=== PATIENT | female | born 1980 | race Caucasian/White ===

== ENCOUNTER 2023-05-14 10:07 | Emergency (ER) | payer BC, SELFPAY ==
[2023-05-14 10:25] VITALS: BP 154/102
[2023-05-14 11:03] LABS: % Basophils 0.2 % (0-2); % Eosinophils 2.7 % (0-6); % Immature Granulocytes 0.2 % (0-0.5); % Monocytes 5.2 % (1.7-9.3); % Neutrophils 55.7 % (42.2-75.2); Absolute Eosinophils 0.2 10^3/uL (0-0.7); Absolute Lymphocytes 2.9 10^3/uL (1.2-3.4); Absolute Monocytes 0.4 10^3/uL (0.1-0.6); Absolute Neutrophils 4.5 10^3/uL (1.4-6.5); Hematocrit 38.1 % (37.0-47.0); Hemoglobin 12.9 g/dL (12.0-16.0); Mean Corp Hgb Conc. 33.9 g/dL (33.0-37.0); Mean Corpuscular Hgb 27.4 pg (27.0-31.0); Mean Corpuscular Volume 80.9 fL (81.0-99.0); Mean Platelet Volume 9.3 fL (7.4-10.4); Nucleated Red Blood Cells % 0 %; Platelet Count 359 10^3/uL (130-400); Red Blood Cell Count 4.71 10^6/uL (4.20-5.40); Red Cell Dist. Width 13.6 % (11.5-14.5); White Blood Cell Count 8.1 10^3/uL (4.8-10.8)
[2023-05-14 11:05] LABS: HCG, Serum Qualitative Screen Negative
[2023-05-14 11:12] LABS: ALT (SGPT) 19 U/L (0-35); AST (SGOT) 21 U/L (14-36); Albumin 3.9 g/dl (3.5-5.0); Alkaline Phosphatase 100 U/L (38-126); Blood Urea Nitrogen 16 mg/dl (7-17); Calcium 9.5 mg/dl (8.4-10.2); Carbon Dioxide 22 mmol/L (22-30); Chloride 104 mmol/L (98-107); Glucose 95 mg/dl (70-99); Potassium 4.2 mmol/L (3.5-5.1); Sodium 135 mmol/L (135-145); Total Bilirubin 0.8 mg/dl (0.2-1.3); Total Protein 7.3 g/dl (6.3-8.2); eGFR > 60.00
--- NOTE | 2023-05-14 12:08 | ED.GENMED ---
History of Present Illness
General
Chief Complaint: Headache
Source: patient
Exam Limitations: none
Time Seen by Provider: 05/14/23 12:07
Nursing documentation reviewed up to this point in time: agreed with
Travel History
Have you had any contact with someone who has COVID-19?: No
Do you have any symptoms of coronavirus? Fever > 100 degrees, chills, cough, shortness of breath, sore throat, loss of taste or smell, muscle aches, or headache?: No
History of Present Illness
History of Present Illness:
42-year-old female past medical history of chronic headaches, chronic neck pain psoriatic arthritis on Humira followed by pain management Dr. Rene Fuentes presents to the ER for evaluation. She has had a headache since she had the flu in February.
She reports for the past week however this headache is just not going away. She does take an occasional ibuprofen. She is photosensitive. She complains of generalized headache. She is nauseous and lightheaded at times. She denies any
associated fevers. Denies any trauma denies any chiropractic work. She has been eval by her family doctor for this headache. She has been seen by ENT last week as well as ophthalmology. She was told she had some congestion and inflammation from
ENT. She was recommended to get Botox for headaches but did not do so yet. Today she had a little swishing sound in her left ear which concerned her otherwise she reports this headache is the same as her normal headaches in general but just not
going away. Denies any vertigo.
Past History
Past History
ED Past Medical History: Other (Migraine headaches, fibromylagia, psoriatic arthritis)
ED Past Surgical History: and Other (Breast reduction, hernia repair)
Social History
Tobacco: Non-smoker
Alcohol: Occasional
Drug: None (no hx of aortic disease)
Personal:
Living: with family
Employment: Employed
Family History
Family History: CAD (grandfather in early 50's)
Review of Systems
Review of Systems
Allergies reviewed?: Yes
All Other Systems: ROS reviewed and negative except as documented in HPI and ROS
Constitutional: Reports no symptoms; Denies fever, fatigue or chills
EENT: Reports no symptoms
Respiratory: Reports no symptoms
Cardiac: Reports no symptoms
ABD/GI: Reports nausea
: Reports no symptoms
Musculoskeletal: Denies neck pain
Skin: Reports no symptoms; Denies rash
Neurological: Reports headache; Denies dizzy, weakness or numbness
Hematologic/Lymphatic: Reports no symptoms
Psychiatric: Reports no symptoms
Phy Exam
General Physical Exam
General Presentation: no apparent distress
General age: appears stated age
General Skin: warm and dry
General Habitus: normal
General Mental: alert
General Hydration: appears well hydrated
Eye Exam
Eye Exam: PERRL and EOMI
Eye Exam General: PERRL: bilateral and EOM intact: bilateral
Pupil Exam: Bilateral: round and reactive
Cardiovascular Exam
Cardiovascular Exam: regular rate/rhythm, no murmur and normal peripheral pulses
Pulmonary Exam
Pulmonary Exam: lungs clear and no respiratory distress
Neurological Exam
Neurological Exam: alert and oriented x3
Amy Coma Scale
Eye Opening: Spontaneous
Verbal Response: Oriented
Motor Response: Obeys Commands
GCS Total Score: 15
Cerebellar
Cerebellar Function: normal finger to nose
Musculoskeletal Exam
Musculoskeletal Exam: full ROM
Skin Exam
Skin Exam: normal color and warm/dry
Psychiatric Exam
Psychiatric Exam: normal mood/affect
Course
Orders/Labs/Results
Orders:
Orders
05/14/23 10:32
CT Head W/o Iv Contrast Urgent
Comment:
Reason For Exam: GHOSH
Test Result ONCE
05/14/23 10:44
CBC/With Diff [Complete Blood Count/With Diff] Urgent
CMP [Comprehensive Metabolic Panel] Urgent
HCG, Serum Qualitative Screen Urgent
05/14/23 12:50
Diphenhydramine [Benadryl] 25 mg IV NOW STA
Metoclopramide [Reglan] 10 mg IV NOW STA
05/14/23 12:51
0.9% Sodium Chloride 1000 ml [Nss] 1,000 ml IV BOLUS
Ketorolac [Toradol] 15 mg IV NOW STA
Abnormal Lab Results
05/14/23
10:44
MCV 80.9 L fL
(81.0-99.0)
05/14/23 10:44
05/14/23 10:44
Vital Signs
Initial and Last Documented VS:
Initial Vital Signs
Temp Pulse Resp BP Pulse Ox
98.3 F 90 16 154/102 98
05/14/23 10:25 05/14/23 10:25 05/14/23 10:25 05/14/23 10:25 05/14/23 10:25
Last Documented Vital Signs
Temp Pulse Resp BP Pulse Ox
98.3 F 78 16 128/97 98
05/14/23 10:25 05/14/23 13:54 05/14/23 13:54 05/14/23 13:54 05/14/23 13:54
MDM/Problems Addressed
Differential Diagnosis Includes:
Not included to headache migraine
MDM/Problems Addressed:
Patient with a history of chronic headaches reports this headache is just simply not going away but does feel similar to her other prior headaches. She presents awake alert no acute distress no recent fevers. She only takes ibuprofen as needed.
She does have pain management and neurology she is not on migraine medication she did not like how this made her feel in the past. She was recommended Botox but did not do this yet. She presents awake alert no acute distress no meningismus
afebrile not on toxic appearing. Patient had a negative CT head. She is afebrile no acute distress no meningismus. She was given Reglan Benadryl fluids Toradol feeling much better. Eating here in the ER.
Will DC with outpatient follow-up with her neurologist/pcp
Chronic conditions affecting care:
chronic headaches psoriatic arthritis on Humira
*Radiology
Radiology exam reviewed: radiology read reviewed
*Pulse Oximetry
Patient hypoxic: no
*Critical Care Note
Total Time (30-74mins, 75-104mins- exclusive of procedures): Not Applicable
ED Attending Note
-
Portions of this chart may have been created with voice recognition software.� Occasional wrong word or��sound alike� substitutions may have occurred due to the inherent limitations of voice recognition software.
Discharge Plan
Departure
Patient Disposition: Home (Routine Discharge)
Date of Disposition: 05/14/23
Time of Disposition: 14:56
Patient with high blood pressure during this ER visit?: Yes
Discharge Problem:
Headache
Instructions: Headache, Adult (DC), BLOOD PRESSURE
Prescriptions:
No Action
cetirizine 10 MG tablet
10 mg PO HS
meloxicam 7.5 MG tablet
15 mg PO DAILY
gabapentin 300 MG capsule
300 mg PO DAILY
fluoxetine 20 MG capsule
20 mg PO DAILY
cholecalciferol (vitamin D3) 2,000 UNIT tablet
4,000 unit PO DAILY
zspchwei-wrvg-RF-calcium-mins [Women's Daily Caplet] 1 EACH tablet
1 ea PO DAILY
Referrals:
Eligio Mckenna MD [Active] -
Jeremiah Diaz MD [Family Provider] -
Activity Restrictions/Additional Instructions:
Follow up with your pcp and neurologist . Return if any worsening of symptoms. You may Take your Ibuprofen every 8 hrs.
Interventions
Interventions:
*Risk Screen - Suicide Last Done: 05/14/23 10:25
*General Assessment Last Done: 05/14/23 10:25
*Neglect/Abuse Screening Last Done: 05/14/23 10:25
ED- Fall Risk Assessment Last Done: 05/14/23 13:52
*ED COVID-19 Vaccine History Last Done: 05/14/23 13:51
ED- Neurological Assessment Last Done: 05/14/23 13:52
[2023-05-14] MEDS: NSS 1000 IV (13:28)
[2023-05-14] MEDS: REGLAN 10 MG IV (13:29)
[2023-05-14] MEDS: BENADRYL 25 MG IV (13:29)
[2023-05-14] MEDS: TORADOL 15 MG IV (13:29)
[2023-05-14 13:40] VITALS: BMI 35.7
[2023-05-14 13:54] VITALS: BP 128/97
== END 2023-05-14 15:29 | disposition home or self-care (01) ==
LOC: EMR 10:07
PROVIDERS: EMERGENCY PHYSICIAN Emergency Medicine; FAMILY PHYSICIAN Internal Medicine
DX: R51.9 Headache, unspecified (principal); L40.50 Arthropathic psoriasis, unspecified; M79.7 Fibromyalgia; Z82.49 Family history of ischemic heart disease and other diseases of the circulatory system
CPT/HCPCS: 99284; 96374; 96375; 96361; 70450; 80053; 84703; 85025

== ENCOUNTER → 2023-09-28 15:14 | Outpatient (REF) | payer BC, SELFPAY | LOC: PAVMRI 15:14 | PROVIDERS: ATTENDING PHYSICIAN Neurological Surgery; FAMILY PHYSICIAN Internal Medicine | DX: M47.812 Spondylosis without myelopathy or radiculopathy, cervical region (principal); M54.12 Radiculopathy, cervical region | CPT/HCPCS: 72141 ==

== ENCOUNTER 2023-12-23 18:41 | Emergency (ER) | payer BC, SELFPAY ==
[2023-12-23 18:41] VITALS: BMI 34.5
[2023-12-23 20:18] VITALS: BP 156/102
[2023-12-23 20:23] LABS: % Basophils 0.3 % (0-2); % Eosinophils 1.2 % (0-6); % Immature Granulocytes 0.3 % (0-0.5); % Lymphocytes 33.4 % (20.5-51.1); % Monocytes 7.4 % (1.7-9.3); % Neutrophils 57.4 % (42.2-75.2); Absolute Eosinophils 0.1 10^3/uL (0-0.7); Absolute Monocytes 0.9 10^3/uL (0.1-0.6); Absolute Neutrophils 6.9 10^3/uL (1.4-6.5); Hematocrit 39.4 % (37.0-47.0); Hemoglobin 13.2 g/dL (12.0-16.0); Mean Corp Hgb Conc. 33.5 g/dL (33.0-37.0); Mean Corpuscular Hgb 26.5 pg (27.0-31.0); Mean Corpuscular Volume 79.1 fL (81.0-99.0); Mean Platelet Volume 9.5 fL (7.4-10.4); Nucleated Red Blood Cells % 0 %; Platelet Count 356 10^3/uL (130-400); Red Blood Cell Count 4.98 10^6/uL (4.20-5.40); Red Cell Dist. Width 13.5 % (11.5-14.5)
[2023-12-23 20:26] LABS: Urine Albumin Negative (Neg - Trace); Urine Bilirubin Negative (Negative); Urine Character Clear (Clear); Urine Color Yellow; Urine Glucose Negative (Negative); Urine Ketone Negative (Negative); Urine Leukocyte Negative (Negative); Urine Nitrite Negative (Negative); Urine Occult Blood Negative (Negative); Urine Specific Gravity 1.015 (<1.030); Urine Urobilinogen Negative (Neg - 1+)
[2023-12-23 20:35] LABS: HCG, Serum Qualitative Screen Negative
[2023-12-23 20:40] LABS: ALT (SGPT) 21 U/L (0-35); AST (SGOT) 25 U/L (14-36); Albumin 4.7 g/dl (3.5-5.0); Alkaline Phosphatase 95 U/L (38-126); Blood Urea Nitrogen 13 mg/dl (7-17); Calcium 10.1 mg/dl (8.4-10.2); Carbon Dioxide 27 mmol/L (22-30); Chloride 100 mmol/L (98-107); Glucose 94 mg/dl (70-99); Potassium 4.1 mmol/L (3.5-5.1); Sodium 141 mmol/L (135-145); Total Bilirubin 0.4 mg/dl (0.2-1.3); Total Protein 7.7 g/dl (6.3-8.2); eGFR > 60.00
[2023-12-23 20:41] LABS: Lipase 86 U/L (23-300)
[2023-12-23 21:22] VITALS: BP 142/89
[2023-12-23 21:23] VITALS: BP 142/89
[2023-12-23 22:00] VITALS: BP 117/62
--- NOTE | 2023-12-23 22:37 | ED.GENMED ---
History of Present Illness
General
Chief Complaint: Abdominal Pain
Source: patient
Exam Limitations: none
Time Seen by Provider: 12/23/23 21:30
Nursing documentation reviewed up to this point in time: agreed with
History of Present Illness
History of Present Illness:
The patient is a 43-year-old female with a past medical history of celiac disease as well as irritable bowel syndrome, who comes in with complaints of intermittent waves of severe cramping abdominal pain for 1 week. Patient reports that it seemed
to start in her upper abdomen towards her chest, and radiates down the right side of her abdomen towards her pelvis. She reports he is having normal bowel movements. She reports occasional nausea. She denies diarrhea and fever. She reports that
she took Tums and had 10 minutes of relief but then the pain came back. Patient reports that the pain intensifies when she leans forward and bears down. Currently, the pain is in her chest and also down her right side.
Past History
Past History
ED Past Medical History: Other (Migraine headaches, fibromylagia, psoriatic arthritis)
ED Past Surgical History: and Other (Breast reduction, hernia repair)
Social History
Tobacco: Non-smoker
Alcohol: Occasional
Drug: None (no hx of aortic disease)
Personal:
Living: with family
Employment: Employed
Family History
Family History: CAD (grandfather in early 50's)
Review of Systems
Review of Systems
Allergies reviewed?: Yes
All Other Systems: ROS reviewed and negative except as documented in HPI and ROS
Constitutional: Reports no symptoms
EENT: Reports no symptoms
Respiratory: Reports no symptoms
Cardiac: Reports chest pain
ABD/GI: Reports abdominal pain and nausea
: Reports no symptoms
Musculoskeletal: Reports no symptoms
Skin: Reports no symptoms
Neurological: Reports no symptoms
Endocrine: Reports no symptoms
Hematologic/Lymphatic: Reports no symptoms
Psychiatric: Reports no symptoms
Phy Exam
Physical Exam
Physical Exam:
Physical Exam
General: no apparent distress, not acutely ill
Neck: supple. no meningeal signs. normal psoterior pharynx
Heart: s1/s2 regular rate and rhythm, no murmur. equal radial pulses.
Lungs: no acute respiratory distress. clear bilaterally
Abdomen: Normal bowel sounds. Mild epigastric tenderness. Mild right sided tenderness. No pulsatile mass. No rebound or guarding
Neuro: alert and oriented. no focal neurological deficits
Skin: no rash
Psychiatric: well kept. interactive and cooperative
Extremities: no edema. no calf tenderness. negative homans. good distal pulses
Course
Orders/Labs/Results
Orders:
Orders
12/23/23 20:10
Test Result ONCE
12/23/23 20:17
Complete Blood Count/With Diff Urgent
Comprehensive Metabolic Panel Urgent
HCG, Serum Qualitative Screen Urgent
Lipase Urgent
Urinalysis Reflex To Culture Urgent
Date Specimen was Collected: 12/23/23
Time Specimen was Collected: 20:10
12/23/23 20:19
Electrocardiogram (*1) Urgent
Reason for Study: Abdominal Pain
EKG- Treatment ONCE
12/23/23 22:49
CT Abd/pelvis W Iv Cont Urgent
Comment:
Reason For Exam: epig pain, R sided ab pain
Mag Hydrox/Al Hydrox/Simeth [Maalox] 30 ml Phenobarb/Hyoscy/Atropine/Scop [] 10 ml Viscous Lidocaine 2% [Xylocaine Viscous Cup] 10 ml PO NOW
12/23/23 22:52
Mag Hydrox/Al Hydrox/Simeth [Maalox] 30 ml .ROUTE .STK-MED ONE
Phenobarb/Hyoscy/Atropine/Scop [] 10 ml .ROUTE .STK-MED ONE
Viscous Lidocaine 2% [Xylocaine Viscous Cup] 15 ml .ROUTE .STK-MED ONE
12/23/23 23:04
Troponin I Urgent
Abnormal Lab Results
12/23/23
20:17
WBC 12.0 H 10^3/uL
(4.8-10.8)
MCV 79.1 L fL
(81.0-99.0)
MCH 26.5 L pg
(27.0-31.0)
Absolute Neuts (auto) 6.9 H 10^3/uL
(1.4-6.5)
Absolute Lymphs (auto) 4.0 H 10^3/uL
(1.2-3.4)
Absolute Monos (auto) 0.9 H 10^3/uL
(0.1-0.6)
12/23/23 20:17
12/23/23 20:17
Vital Signs
Initial and Last Documented VS:
Initial Vital Signs
Temp Pulse Resp BP Pulse Ox
98.4 F 74 18 156/102 99
12/23/23 20:18 12/23/23 20:18 12/23/23 20:18 12/23/23 20:18 12/23/23 20:18
Last Documented Vital Signs
Temp Pulse Resp BP Pulse Ox
98.4 F 79 18 134/87 99
12/23/23 20:18 12/23/23 23:08 12/23/23 21:23 12/23/23 23:00 12/23/23 21:23
MDM/Problems Addressed
Differential Diagnosis Includes:
Acute cholecystitis, gastritis, small bowel obstruction
MDM/Problems Addressed:
Patient reports acute epigastric and diffuse abdominal pain
Chronic conditions affecting care:
Given patient has a history of irritable bowel disease, her symptoms could be related to this. Additionally, patient has a history of previous abdominal surgery so could have adhesions causing a small bowel obstruction
Chronic conditions affecting care: Previous abdomnial surgery
Acute Exacerbation and/or Progression of Chronic Illness: Previous abdomnial surgery
*Radiology
Radiology exam reviewed: radiology read reviewed
*Pulse Oximetry
Patient hypoxic: no
*EKG
Interpreted by ED Provider?: Yes
Interpretation: abnormal
Comparison EKG: no comparison EKG present
Rate: normal
Rhythm: sinus
[place]: normal axis
Interval: normal interval
QRS Pattern: normal QRS
Ischemia: no ischemia
*Reverser Interpretation
Rate: normal
Interpretation: normal
Rhythm: sinus
*Critical Care Note
Total Time (30-74mins, 75-104mins- exclusive of procedures): Not Applicable
Data Reviewed
Review of Other/Old Records Reveals: Radiology Studies (Abdominal ultrasound reviewed from 2019 which showed fatty liver no other abnormalities)
Source: patient
Update Note
Update Note:
Patient remains well-appearing. There is no sign of UTI or pyelonephritis. CT shows no sign of acute gallbladder disease, acute appendicitis or diverticulitis. CT shows enlarged uterus. Patient happens to have an appointment with her
[employer] plant supervisor within 1 week if she show her [employer] plant supervisor a copy of the CT report. Additionally, patient reports she has an appointment with her director staffing in a few days so she will have good follow-up. Patient may have acute gastritis
ED Attending Note
-
Portions of this chart may have been created with voice recognition software.� Occasional wrong word or��sound alike� substitutions may have occurred due to the inherent limitations of voice recognition software.
Discharge Plan
Departure
Patient Disposition: Home (Routine Discharge)
Date of Disposition: 12/24/23
Time of Disposition: 00:46
Patient with high blood pressure during this ER visit?: Yes
Condition: Good
Covid-19: Not Applicable
Discharge Problem:
Abdominal pain
Instructions: Abdominal Pain
Prescriptions:
New
sucralfate [Carafate] 100 mg/mL suspension
10 ml PO ACHS 7 Days Qty: 280 0RF
No Action
cetirizine 10 MG tablet
10 mg PO HS
meloxicam 7.5 MG tablet
15 mg PO DAILY
gabapentin 300 MG capsule
300 mg PO DAILY
fluoxetine 20 MG capsule
20 mg PO DAILY
cholecalciferol (vitamin D3) 2,000 UNIT tablet
4,000 unit PO DAILY
djgdnqss-exjw-AR-calcium-mins [Women's Daily Caplet] 1 EACH tablet
1 ea PO DAILY
Referrals:
Jeremiah Diaz MD [Family Provider] -
Activity Restrictions/Additional Instructions:
Follow-up with your director staffing and [employer] plant supervisor as scheduled.
Interventions
Interventions:
*Risk Screen - Suicide Last Done: 12/23/23 20:18
*General Assessment Last Done: 12/23/23 20:18
*Neglect/Abuse Screening Last Done: 12/23/23 21:23
ED- Fall Risk Assessment Last Done: 12/23/23 21:27
*ED COVID-19 Vaccine History Last Done: 12/23/23 21:23
KP-Acefpd-Hfzwzmnenz Assessment Last Done: 12/23/23 21:27
Discharge Date and Time
Print Language: [place]
[2023-12-23] MEDS: MAALOX 50 PO (22:55)
[2023-12-23 23:00] VITALS: BP 134/87
[2023-12-23 23:36] LABS: Troponin I < 0.012 ng/ml
== END 2023-12-24 01:45 | disposition home or self-care (01) ==
LOC: EMR 18:41
PROVIDERS: Emergency Medicine; EMERGENCY PHYSICIAN Emergency Medicine; FAMILY PHYSICIAN Internal Medicine
DX: R10.13 Epigastric pain (principal); R11.0 Nausea; R07.9 Chest pain, unspecified; R03.0 Elevated blood-pressure reading, without diagnosis of hypertension; K90.0 Celiac disease; K58.9 Irritable bowel syndrome, unspecified; G43.909 Migraine, unspecified, not intractable, without status migrainosus; L40.50 Arthropathic psoriasis, unspecified; M79.7 Fibromyalgia; Z88.1 Allergy status to other antibiotic agents; Z88.3 Allergy status to other anti-infective agents; Z88.0 Allergy status to penicillin; Z88.8 Allergy status to other drugs, medicaments and biological substances
CPT/HCPCS: 99284; 74177; 80053; 81003; 83690; 84484; 84703; 85025; 93005; Q9967

== ENCOUNTER → 2024-07-06 10:25 | Outpatient (REF) | payer BC, SELFPAY | LOC: HWRAD 10:25 | PROVIDERS: ATTENDING PHYSICIAN Neurological Surgery; FAMILY PHYSICIAN Internal Medicine | DX: M47.812 Spondylosis without myelopathy or radiculopathy, cervical region (principal); M54.12 Radiculopathy, cervical region | CPT/HCPCS: 72050; 72110 ==

== ENCOUNTER → 2024-11-27 15:47 | Outpatient (REF) | payer BC, SELFPAY | LOC: MRI 15:47 | PROVIDERS: ATTENDING PHYSICIAN Psychiatry & Neurology Neurology; FAMILY PHYSICIAN Internal Medicine | DX: M54.12 Radiculopathy, cervical region (principal) | CPT/HCPCS: 71045; 71552; A9575 ==

== ENCOUNTER → 2024-12-06 20:20 | Outpatient (REF) | payer BC, SELFPAY | LOC: MRI 3T 20:20 | PROVIDERS: ATTENDING PHYSICIAN Psychiatry & Neurology Neurology; FAMILY PHYSICIAN Internal Medicine | DX: M54.12 Radiculopathy, cervical region (principal) | CPT/HCPCS: 70547 ==

== ENCOUNTER → 2024-12-19 06:46 | Outpatient (REF) | payer BC, SELFPAY | LOC: EMG 06:46 | PROVIDERS: ATTENDING PHYSICIAN Psychiatry & Neurology Neurology; FAMILY PHYSICIAN Internal Medicine | DX: M54.17 Radiculopathy, lumbosacral region (principal); R20.0 Anesthesia of skin | CPT/HCPCS: 95886; 95910 ==